=== PATIENT | male | born 1965 | race Asian ===

== ENCOUNTER 2021-07-06 07:23 | Inpatient (IN) | payer OTHER ==
[~2021-07-06] VITALS: Ht 162.6 cm; Wt 60.3 kg
[2021-07-06 07:25] VITALS: BP_SYST 113
--- NOTE | 2021-07-06 07:25 | NUR ---
Patient to ER bed 8 to gown for evaluation. Side rails up. Report given to Judie.
--- NOTE | 2021-07-06 07:25 | NUR ---
Pt. bib son with c/o chest pain X 1 week that worsened last night and has remained 5/10 on pain scale. Pain to mid chest, sharp and non radiating, denies dalia previous hx. of chest pain or HTN
--- NOTE | 2021-07-06 07:42 | NUR ---
ER at bedside examining patient.
--- NOTE | 2021-07-06 07:52 | NUR ---
Pt in bed 8 resting with no s/s of distress. Pt is A&Ox4. Pt c/o chest pain in the middle that is non-radiating. Rates pain 7/10. HR elevated at 124, other vitals stable. No sob present and denies n/v. No blurred vision. 20g IV placed on left AC using aseptic technique no infiltration noted. Blood drawn and sent to lab. EKG 12 lead done results were sinus tach. ER physician aware. Son at bed side. Bed in lowest position and connected to shelter monitor.
[2021-07-06 07:59] LABS: BASOPHILS # (AUTO) 0.1 K/uL (0.0-0.2); BASOPHILS % (AUTO) 0.5 % (0.0-2.0); EOSINOPHILS # (AUTO) 0.5 K/uL (0.0-0.4); EOSINOPHILS % (AUTO) 5.3 % (0.0-4.0); HEMATOCRIT 36.9 % (36-54); LYMPHOCYTES # (AUTO) 1.9 K/uL (1.0-5.5); LYMPHOCYTES % (AUTO) 18.2 % (20.5-51.5); MEAN CORPUSCULAR HEMOGLOBIN 25 pg (27-31); MEAN CORPUSCULAR HGB CONC 33 % (32-36); MEAN CORPUSCULAR VOLUME 77 fL (79.0-98.0); MONOCYTES # (AUTO) 1.2 K/uL (0.0-1.0); MONOCYTES % (AUTO) 11.8 % (1.7-9.3); NEUTROPHILS # (AUTO) 6.6 K/uL (1.8-7.7); NEUTROPHILS % (AUTO) 64.2 % (40.0-70.0); PLATELET COUNT (AUTO) 204 K/uL (130-430); RED CELL DISTRIBUTION WIDTH 13.7 % (9.0-15.0); WHITE BLOOD COUNT (AUTO) 10.3 K/uL (4.8-10.8)
--- NOTE | 2021-07-06 08:00 | NUR ---
Covid swab done and sent to lab.
[2021-07-06 08:12] LABS: CALCIUM 8.4 mg/dL (8.4-11.0); CREATININE 1.37 mg/dL (0.55-1.30); POTASSIUM 3.5 mmol/L (3.5-5.1)
[2021-07-06 08:27] LABS: ALBUMIN 3.3 g/dL (3.4-4.8); THYROID STIMULATING HORMONE 0.6 uIu/mL (0.36-3.74); TOTAL BILIRUBIN 0.7 mg/dL (0.0-1.0)
--- NOTE | 2021-07-06 08:31 | NUR ---
RECEIVED CRITICAL TROPONINS FROM LAB [address] BARTLETT MADE AWARE
--- NOTE | 2021-07-06 09:00 | NUR ---
CTA of Chest with Contrast consent obtained. All questions and concerns addressed at this time.
--- NOTE | 2021-07-06 09:32 | NUR ---
Pt went to CT via [facility] accompanied with son.
[2021-07-06] MEDS ORDERED: IOHEXOL 350 mgI/mL, 150 ML INFUS..BTL IV ONE (09:33)
--- NOTE | 2021-07-06 09:49 | NUR ---
Pt back from CT and connected to monitoring analyst. Son at bedside.
[2021-07-06] MEDS ORDERED: ASPIRIN 325 MG TABLET PO ONE (10:30)
--- NOTE | 2021-07-06 10:41 | NUR ---
second EKG done and results were sinus tach. ER physician notified and let him know that pt still has chest pain so morphine and nitro was reccomended.
--- NOTE | 2021-07-06 10:44 | NUR ---
Called pharmacy in regards to pt's heparin medication. software validation technician stated they will look into it and prepare medication as soon as possible.
[2021-07-06] MEDS ORDERED: *HEPARIN PER PHARMACY XX ONE (10:45)
[2021-07-06] MEDS ORDERED: NITROGLYCERIN 0.4 MG TAB.SUBL SL ONE (10:45)
--- NOTE | 2021-07-06 10:57 | NUR ---
Nitro 0.4mg tab sublingial administered to pt.
--- NOTE | 2021-07-06 11:07 | NUR ---
ER physician stated to hold heparin medication for now.
[2021-07-06] MEDS ORDERED: ENOXAPARIN SODIUM 60 MG/0.6 ML SYRINGE SUBCUT ONE (11:15)
--- NOTE | 2021-07-06 11:29 | NUR ---
DR HUNT IN ROOM FOR EXAM.
--- NOTE | 2021-07-06 11:31 | NUR ---
DR. Cotter MADE AWARE OF PT'S SECOND TROPONIN RESULTS . DR. SOUZA ON CASE.
--- NOTE | 2021-07-06 11:40 | NUR ---
ER physician at pt's bedside explaining plan of care and the possibility of pt getting admitted. Pt aware and all questions and concerns addressed at this time.
--- NOTE | 2021-07-06 12:19 | NUR ---
Dr. West called and gave admit orders which were to place conchis as an inpatient in Tele unit for diagnosis of Acute DE, place on low salt diet, stat echo to be done, cardiology consult with Dr. Pickett, and troponin lab draw every 8 hours three time starting at 1645.
--- NOTE | 2021-07-06 12:41 | NUR ---
ECHO CARDIOGRAM BEING DONE AT BEDSIDE AT THIS TIME. SON AT BEDSIDE.
--- NOTE | 2021-07-06 12:54 | NUR ---
REPORT GIVEN TO MARCELL RODRIGUEZ, UPDATED ON LABS, VITALS, AND PENDING ORDERS. ALL QUESTIONS ANSWERED.
--- NOTE | 2021-07-06 12:55 | NUR ---
Patient will be admitted to care of DR HUNT. Admitted to unit. Will go to room . Belongings list completed. Complete and up to date summary report printed. SBAR report to be NATHAN RN given at bedside with opportunity for questions.
[2021-07-06] MEDS ORDERED: *LOVENOX 1MG/KG Q12H/PHARMACY XX PRN (13:15)
[2021-07-06] MEDS ORDERED: ENALAPRILAT DIHYDRATE 1.25 MG/ML VIAL IVP PRN (13:15)
--- NOTE | 2021-07-06 13:30 | NUR ---
admission notes, received pt from [facility] c/o frank khalil, pt is under the care of dr West with cc of chest pain and dx of acute m.i. dr Pickett will also be on the case. Pt and son educated on the use of call light , tv and bed controls. encouraged to use call light incase of chest pain or any other pain and for any concerns. will cont to monitor.
[2021-07-06 13:45] VITALS: BP_SYST 101
--- NOTE | 2021-07-06 13:50 | NUR ---
CONSULTATION PAGED/CALLED Reason for Consultation: [] ACUTE NC Person Who was Notified: [] LEA Consulting Physician: [] DR SOUZA Cream Buyer Specialty: [] CLEANER GREASER Ordering Physician: [] DR HUNT
[2021-07-06] MEDS ORDERED: MORPHINE 4 MG INJ. 4 MG/ML VIAL IVP PRN (14:00)
[2021-07-06] MEDS ORDERED: MORPHINE 2 MG/ML INJ. SYRINGE IVP PRN (14:00)
[2021-07-06] MEDS ORDERED: ONDANSETRON HCL 4 MG/2 ML VIAL IVP PRN (14:00)
[2021-07-06] MEDS ORDERED: METOPROLOL TARTRATE 25 MG TABLET PO ONE (16:15)
[2021-07-06 17:04] VITALS: BP_SYST 113
--- NOTE | 2021-07-06 18:36 | NUR ---
Pt has been stable since arrival from [facility] , transfer order to icu cancelled by dr. grande. no c/o of chest pain. all ordered meds offered and taken by pt.
--- NOTE | 2021-07-06 19:07 | NUR ---
Paged Dr. Pickett s/w Aliza
[2021-07-06 19:09] LABS: BARBITURATE, URINE NEGATIVE (NEG <=200); BENZODIAZEPINE, URINE NEGATIVE (NEG <=150); CANNABINOID, URINE NEGATIVE (NEG <=50); COCAINE, URINE NEGATIVE (NEG <=150); METHAMPHETAMINES SCREEN,URINE NEGATIVE (NEG <=500); OPIATE, URINE NEGATIVE (NEG <=100); PHENCYCLIDINE SCREEN,URINE NEGATIVE (NEG <=25); UR TRICYCLIC ANTIDEPRESSANTS NEGATIVE (NEG <=300); URINE AMPHETAMINE NEGATIVE (NEG <=500); URINE METHADONE NEGATIVE (NEG <=200); URINE OXYCODONE SCREEN NEGATIVE (NEG <=100); URINE PROPOXYPHENE SCREEN NEGATIVE (NEG <=300)
--- NOTE | 2021-07-06 19:25 | NUR ---
CHANGE OF SHIFT; endorsed by day shift. no distress noted. call light within reach.
[2021-07-06 20:50] VITALS: BP_SYST 98
[2021-07-06] MEDS: COLCHICINE 0.6 MG TABLET PO SCH (20:53)
[2021-07-06] MEDS: METOPROLOL TARTRATE 25 MG TABLET PO SCH (21:00)
[2021-07-06] MEDS ORDERED: METOPROLOL TARTRATE 25 MG TABLET PO SCH (21:00)
[2021-07-06] MEDS: ACETAMINOPHEN 325 MG TABLET PO PRN (21:03)
[2021-07-06] MEDS: ENOXAPARIN SODIUM 60 MG/0.6 ML SYRINGE SUBCUT SCH (21:04)
--- NOTE | 2021-07-06 22:58 | NUR ---
NOTES: lab called and informing about a lipid panel blood drawn , their machine needs to be check and fix, no stat order on it and may take till tomorrow for the result.
--- NOTE | 2021-07-07 00:41 | NUR ---
NOTES; pt. checked and sleeping. no further complaint noted.
[2021-07-07 01:01] VITALS: BP_SYST 104
--- NOTE | 2021-07-07 04:00 | NUR ---
NOTES: pt. been sleeping. condition unchanged. continue to monitor.
--- NOTE | 2021-07-07 06:40 | NUR ---
CLOSING NOTES; still needs urine for drug screen, due to void., sterile cup at bedside, pt. aware of the urine. no complaints. pretty awake. call light within reach. will endorse to incoming shift. for further care and assist.
--- NOTE | 2021-07-07 07:30 | NUR ---
NOTES PATIENT AAOX 4. VITALS SIGNS STABLE. AFEBRILE. AMBULATORY. UNDERSTAND BIT OF OCCITAN. LUNGS BILATERALLY CLEAR. ABDOMEN SOFT AND NON DISTENDED. HAS IV ACCESS ON THE LEFT FOREARM #20 SALINE LOCK. PATENT/DRY. CALL LIGHTS WITHIN REACH. BED LOW POSITION, ALARMED AND LOCKED. WILL CONTINUE
[2021-07-07 07:42] LABS: ALBUMIN 2.9 g/dL (3.4-4.8); CALCIUM 8.5 mg/dL (8.4-11.0); CREATININE 1.09 mg/dL (0.55-1.30); POTASSIUM 3.7 mmol/L (3.5-5.1); THYROID STIMULATING HORMONE 1.54 uIu/mL (0.36-3.74); TOTAL BILIRUBIN 0.4 mg/dL (0.0-1.0)
[2021-07-07 08:23] VITALS: BP_SYST 107
[2021-07-07] MEDS: ENOXAPARIN SODIUM 60 MG/0.6 ML SYRINGE SUBCUT SCH ×2 (08:32→22:21)
[2021-07-07] MEDS: COLCHICINE 0.6 MG TABLET PO SCH ×3 (08:32→22:07)
[2021-07-07] MEDS: METOPROLOL TARTRATE 25 MG TABLET PO SCH ×2 (08:33→22:08)
--- NOTE | 2021-07-07 08:41 | NUR ---
URINE SENT FOR DRUG SCREEN.
--- NOTE | 2021-07-07 08:42 | NUR ---
DR SOUZA CAME AND EVALUATE THE PATIENT. INFORMED OF THE TROPONIN 181.
[2021-07-07] MEDS ORDERED: ASPIRIN 325 MG TABLET PO SCH (09:00)
[2021-07-07 09:15] LABS: BARBITURATE, URINE NEGATIVE (NEG <=200); BENZODIAZEPINE, URINE NEGATIVE (NEG <=150); CANNABINOID, URINE NEGATIVE (NEG <=50); COCAINE, URINE NEGATIVE (NEG <=150); METHAMPHETAMINES SCREEN,URINE NEGATIVE (NEG <=500); OPIATE, URINE NEGATIVE (NEG <=100); PHENCYCLIDINE SCREEN,URINE NEGATIVE (NEG <=25); UR TRICYCLIC ANTIDEPRESSANTS NEGATIVE (NEG <=300); URINE AMPHETAMINE NEGATIVE (NEG <=500); URINE METHADONE NEGATIVE (NEG <=200); URINE OXYCODONE SCREEN NEGATIVE (NEG <=100); URINE PROPOXYPHENE SCREEN NEGATIVE (NEG <=300)
[2021-07-07 11:30] VITALS: BP_SYST 119
--- NOTE | 2021-07-07 12:00 | NUR ---
RETING AT THIS TIME. NO DISTRESS NOTED.
[2021-07-07 13:10] LABS: CHOLESTEROL 194 mg/dL (<200); HDL CHOLESTEROL 47 mg/dL (>45); LDL CHOLESTEROL 128 mg/dL (<100); TRIGLYCERIDES 96 mg/dL (30-150)
--- NOTE | 2021-07-07 15:00 | NUR ---
DUE MEDS GIVEN AT THIS TIME.
[2021-07-07 15:05] VITALS: BP_SYST 105
--- NOTE | 2021-07-07 18:33 | NUR ---
PATIENT STABLE AND EATING DINNER. NO S/S OF DISTRESS NOR CHEST PAIN NOTED.
[2021-07-07 21:20] VITALS: BP_SYST 104
[2021-07-08 00:39] VITALS: BP_SYST 116
[2021-07-08] MEDS: ACETAMINOPHEN 325 MG TABLET PO PRN (01:34)
[2021-07-08 05:37] VITALS: BP_SYST 110
[2021-07-08 06:53] LABS: ALBUMIN 2.7 g/dL (3.4-4.8); CALCIUM 8.3 mg/dL (8.4-11.0); CREATININE 1.16 mg/dL (0.55-1.30); POTASSIUM 3.4 mmol/L (3.5-5.1); TOTAL BILIRUBIN 0.2 mg/dL (0.0-1.0)
--- NOTE | 2021-07-08 08:00 | NUR ---
NOTES PATIENT AAOX 4. VITALS SIGNS STABLE. AFEBRILE. NO S/S OF DISTRESS NOTED. NOR CHEST PAIN NOTED. VERBALIZED WANTS TO SLEEP MORE, NOT ABLE TO SLEEP AT ALL LAST NITE. ON HEART MONITOR SR NO ECTOPY NOTED. HAS IV ACCESS ON THE LEFT FOREARM #20. SALINE LOCKED. PATENT/DRY. WILL MONITOR
[2021-07-08 08:38] VITALS: BP_SYST 105
[2021-07-08] MEDS: METOPROLOL TARTRATE 25 MG TABLET PO SCH (08:44)
[2021-07-08] MEDS: COLCHICINE 0.6 MG TABLET PO SCH (08:44)
--- NOTE | 2021-07-08 09:00 | NUR ---
DUE MEDS GIVEN.
[2021-07-08] MEDS ORDERED: METO50TA7 PO (10:08)
[2021-07-08] MEDS ORDERED: COLC0.6T67 PO (10:08)
[2021-07-08 11:23] VITALS: BP_SYST 105
[2021-07-08 12:06] VITALS: BP_SYST 105
--- NOTE | 2021-07-08 13:00 | NUR ---
DISCHARGE INSTRUCTION GIVEN TO THE PATIENT, INCLUDING THE SON REGARDING THE DISCHARGE SUMMARY AND TO SEE THE PCP FOR ANY HEALTH COMPLAINT SO FAR. SDCH I D BAND REMOVED. IV ACCESS REMOVED. INFORMED REGARDING THE FOODS TO EAT AND NOT TO EAT. PATIENT SIGNED THE RELEASE PAPER.
--- NOTE | 2021-07-08 13:22 | NUR ---
SON NAMED DONNA CAME TO FRONT OFFICE COORDINATOR THE DAD. INFORMED TO WAIT FOR THE DIETITICIAN TO HAVE COPY OF LOW NA DIET AND LOW PURINE DIET.
--- NOTE | 2021-07-08 13:44 | NUR ---
INFORMED DR HUNT REGARDING A MEDICAL CERTIFICATE TO GO BACK TO WORK. BUT DR HUNT SAID NO. NEEDS TO SEE FIRST THE PRIMARY DOCTOR.
== END 2021-07-08 13:45 | disposition home or self-care (01) | DRG 280 ==
LOC: SED 07:23 → STU 12:13
PROVIDERS: ADMIT Internal Medicine Hospice and Palliative Medicine; ATTEND Internal Medicine Hospice and Palliative Medicine
DX: I30.9 Acute pericarditis, unspecified (principal); I50.21 Acute systolic (congestive) heart failure; I21.A1 Myocardial infarction type 2; I24.9 Acute ischemic heart disease, unspecified; U09.9 Post COVID-19 condition, unspecified; I11.0 Hypertensive heart disease with heart failure; Z20.822 Contact with and (suspected) exposure to COVID-19
CPT/HCPCS: 36415; 71045; 71275; 76376; 80053; 80061; 80307; 83036; 83880; 84443; 84484; 85025; 85379; 85651-TC; 85730-TC; 86140; 93005; 93306; 96372; 99291; G0378; J1650; Q9967